=== PATIENT | male | born 1945 | race Caucasian/White ===

== ENCOUNTER → 2018-01-15 | Outpatient (CLI) | payer MEDICARE ==
[2018-01-15 08:31] LABS: HEMATOCRIT 42.8 % (42.0-52.0); HEMOGLOBIN 14.1 g/dl (14.0-18.0); MEAN CORPUSCULAR HGB 31.6 pg (27.0-31.0); MEAN CORPUSCULAR HGB CONC 32.9 g/dl (33.0-37.0); MEAN PLATELET VOLUME 9.6 fl (9.6-12.3); RED BLOOD COUNT 4.46 10*6/uL (4.50-5.90); WHITE BLOOD COUNT 7.2 10*3/uL (4.8-10.8)
[2018-01-15 08:43] LABS: ALBUMIN 3.8 gm/dl (3.1-4.5); ALKALINE PHOSPHATASE 87 U/L (45-117); BUN 13 mg/dl (7-24); CHLORIDE 102 mmol/L (98-107); CHOLESTEROL 212 mg/dL (<200); CREATININE 1.11 mg/dL (0.70-1.30); POTASSIUM 3.8 mmol/L (3.5-5.1); SGOT/AST 16 IU/L (3-35); SGPT/ALT 19 U/L (12-78); SODIUM 136 mmol/L (136-145); TOTAL PROTEIN 7.7 gm/dL (6.4-8.2); TRIGLYCERIDES 120 mg/dl (<150); VLDL CHOLESTEROL 24 mg/dL (6-40)
[2018-01-15 08:45] LABS: HDL CHOLESTEROL 41 mg/dl (40-60); LDL CHOLESTEROL 147 mg/dL (9-159)
== END ==
LOC: LAB 07:20
PROVIDERS: Family Medicine
DX: Z12.5 Encounter for screening for malignant neoplasm of prostate (principal); E55.9 Vitamin D deficiency, unspecified; E74.9 Disorder of carbohydrate metabolism, unspecified; E78.00 Pure hypercholesterolemia, unspecified; F41.1 Generalized anxiety disorder; E74.00 Glycogen storage disease, unspecified; Z79.899 Other long term (current) drug therapy

== ENCOUNTER → 2018-01-27 | Outpatient (CLI) | payer MEDICARE | END | disposition home or self-care (01) | LOC: RAD 08:32 | DX: K21.9 Gastro-esophageal reflux disease without esophagitis (principal); R13.19 Other dysphagia ==

== ENCOUNTER → 2018-02-22 | Outpatient (CLI) | payer MEDICARE | END | disposition home or self-care (01) | LOC: MRI 12:51 | DX: J32.8 Other chronic sinusitis (principal); H91.90 Unspecified hearing loss, unspecified ear; R41.3 Other amnesia; E11.9 Type 2 diabetes mellitus without complications ==

== ENCOUNTER → 2018-07-26 | Outpatient (CLI) | payer MEDICARE, OTHER ==
[2018-07-26 10:54] LABS: HEMATOCRIT 42.1 % (42.0-52.0); HEMOGLOBIN 13.6 g/dl (14.0-18.0); MEAN CELL VOLUME 96.1 fl (80.0-94.0); MEAN CORPUSCULAR HGB 31.1 pg (27.0-31.0); MEAN CORPUSCULAR HGB CONC 32.3 g/dl (33.0-37.0); MEAN PLATELET VOLUME 9.3 fl (9.6-12.3); RED BLOOD COUNT 4.38 10*6/uL (4.50-5.90); RED CELL DISTRI WIDTH 12.6 % (0-14.5); WHITE BLOOD COUNT 7.2 10*3/uL (4.8-10.8)
[2018-07-26 11:08] LABS: ALBUMIN 3.5 gm/dl (3.1-4.5); ALKALINE PHOSPHATASE 78 U/L (45-117); BUN 19 mg/dl (7-24); CHLORIDE 105 mmol/L (98-107); CHOLESTEROL 163 mg/dL (<200); CPK 49 U/L (39-308); CREATININE 1.04 mg/dL (0.70-1.30); HDL CHOLESTEROL 39 mg/dl (40-60); LDL CHOLESTEROL 104 mg/dL (9-159); POTASSIUM 4.4 mmol/L (3.5-5.1); SGOT/AST 13 IU/L (3-35); SGPT/ALT 26 U/L (12-78); SODIUM 137 mmol/L (136-145); TOTAL PROTEIN 7.3 gm/dL (6.4-8.2); TRIGLYCERIDES 100 mg/dl (<150); VLDL CHOLESTEROL 20 mg/dL (6-40)
[2018-07-27 08:09] LABS: HEPATITIS B SURFACE AG Negative (Negative); HEPATITIS C VIRUS ANTIBODY 0.2 s/co (0.0-0.9)
== END | disposition home or self-care (01) ==
LOC: LAB 09:49
PROVIDERS: Family Medicine
DX: Z12.5 Encounter for screening for malignant neoplasm of prostate (principal); E78.00 Pure hypercholesterolemia, unspecified; E55.9 Vitamin D deficiency, unspecified; E74.9 Disorder of carbohydrate metabolism, unspecified; F41.9 Anxiety disorder, unspecified; E74.00 Glycogen storage disease, unspecified; E66.9 Obesity, unspecified; R53.83 Other fatigue; R10.9 Unspecified abdominal pain

== ENCOUNTER 2022-01-13 16:48 | Emergency (ER) | payer MEDICARE, OTHER ==
[~2022-01-13] VITALS: Ht 177.8 cm; Wt 133.4 kg
[2022-01-13 17:19] LABS: BASO % 0.3 % (0.0-1.0); EOS # 0.1 10*3/uL (0.0-0.4); EOS % 1.3 % (1.0-4.0); HEMATOCRIT 39.3 % (42.0-52.0); LYMPH # 2.3 10*3/uL (1.3-4.4); MEAN CELL VOLUME 92.7 fl (80.0-94.0); MEAN CORPUSCULAR HGB 30.9 pg (27.0-31.0); MEAN CORPUSCULAR HGB CONC 33.3 g/dl (33.0-37.0); MEAN PLATELET VOLUME 8.9 fl (9.6-12.3); MONO # 0.5 10*3/uL (0.1-1.0); MONO % 7.4 % (3.0-9.0); NEUT % 57.9 % (47.0-73.0); PLATELET COUNT AUTOMATED 176 10*3/uL (130-400); RED BLOOD COUNT 4.24 10*6/uL (4.50-5.90); RED CELL DISTRI WIDTH 12.7 % (0-14.5); WHITE BLOOD COUNT 6.9 10*3/uL (4.8-10.8)
[2022-01-13 17:32] LABS: ACT PARTIAL THROMBO TIME 22.2 SECONDS (20.0-32.1)
[2022-01-13 17:34] LABS: ALKALINE PHOSPHATASE 88 U/L (45-117); BUN 20 mg/dl (7-24); CHLORIDE 102 mmol/L (98-107); CREATININE 1.21 mg/dL (0.70-1.30); POTASSIUM 4.1 mmol/L (3.5-5.1); SGOT/AST 15 IU/L (3-35); SGPT/ALT 21 U/L (12-78); SODIUM 137 mmol/L (136-145); TOTAL PROTEIN 7.3 gm/dL (6.4-8.2)
== END 2022-01-13 18:04 | disposition short-term general hospital (02) ==
LOC: ED 16:48
PROVIDERS: Internal Medicine
DX: I21.3 ST elevation (STEMI) myocardial infarction of unspecified site (principal)

== ENCOUNTER 2022-04-24 13:08 | Emergency (ER) | payer MEDICARE, OTHER ==
[~2022-04-24] VITALS: Ht 177.8 cm; Wt 127.0 kg
[2022-04-24] MEDS ORDERED: CEPHALEXIN500 M1 PO (16:35)
[2022-04-24] MEDS ORDERED: SEPTDS PO (16:38)
== END 2022-04-24 16:56 | disposition home or self-care (01) ==
LOC: ED 13:08
DX: S61.412A Laceration without foreign body of left hand, initial encounter (principal); W18.09XA Striking against other object with subsequent fall, initial encounter; Y93.01 Activity, walking, marching and hiking; Y92.89 Other specified places as the place of occurrence of the external cause; Y99.8 Other external cause status

== ENCOUNTER 2023-08-21 10:41 | Emergency (ER) | payer MEDICARE ==
[~2023-08-21] VITALS: Wt 123.8 kg
[~2023-08-21 10:41] MED LIST: CEPHALEXIN500 M1 PO; SEPTDS PO
[2023-08-21 12:27] LABS: BASO % 0.2 % (0.0-1.0); EOS # 0.1 10*3/uL (0.0-0.4); EOS % 0.9 % (1.0-4.0); HEMATOCRIT 44.6 % (42.0-52.0); LYMPH # 1.5 10*3/uL (1.3-4.4); LYMPH % 15.4 % (27.0-41.0); MEAN CELL VOLUME 96.1 fl (80.0-94.0); MEAN CORPUSCULAR HGB 31.3 pg (27.0-31.0); MEAN CORPUSCULAR HGB CONC 32.5 g/dl (33.0-37.0); MEAN PLATELET VOLUME 9.3 fl (9.6-12.3); MONO # 0.5 10*3/uL (0.1-1.0); MONO % 4.5 % (3.0-9.0); NEUT # 7.8 10*3/uL (2.3-7.9); NEUT % 78.6 % (47.0-73.0); PLATELET COUNT AUTOMATED 148 10*3/uL (130-400); RED BLOOD COUNT 4.64 10*6/uL (4.50-5.90); RED CELL DISTRI WIDTH 12.9 % (0-14.5); WHITE BLOOD COUNT 9.9 10*3/uL (4.8-10.8)
[2023-08-21 12:37] LABS: ACT PARTIAL THROMBO TIME 24.2 SECONDS (20.0-32.1)
[2023-08-21 12:50] LABS: ALKALINE PHOSPHATASE 105 U/L (46-116); BUN 14 mg/dl (9-23); CHLORIDE 104 mmol/L (98-107); LIPASE 27 U/L (12-53); SGPT/ALT 21 U/L (5-49)
[2023-08-21] MEDS ORDERED: MIRALAX POWDER17 G1 PO (19:40)
== END 2023-08-21 19:57 | disposition home or self-care (01) ==
LOC: ED 10:41
PROVIDERS: Emergency Medicine
DX: Z98.890 Other specified postprocedural states (principal); R10.2 Pelvic and perineal pain

== ENCOUNTER 2024-10-06 17:01 | Emergency (ER) | payer MEDICARE ==
[~2024-10-06] VITALS: Ht 177.8 cm; Wt 129.3 kg
[~2024-10-06 17:01] MED LIST changes: +MIRALAX POWDER17 G1 PO
[2024-10-06] MEDS ORDERED: FAMOTIDINE 50 ML IV ONE (17:05)
[2024-10-06] MEDS ORDERED: SODIUM CHLORIDE 0.9% 1,000 ML IV ONE (17:05)
[2024-10-06] MEDS ORDERED: METFORMIN XR500 MG PO (17:15)
[2024-10-06] MEDS ORDERED: CALCIUM 600 MG1 EAC6 PO (17:15)
[2024-10-06] MEDS ORDERED: SERTRALINE HYDR50 MG PO (17:15)
[2024-10-06] MEDS ORDERED: PANTOPRAZOLE SO40 MG PO (17:16)
[2024-10-06] MEDS ORDERED: ROSUVASTATIN CA40 MG PO (17:16)
[2024-10-06] MEDS ORDERED: METOPROLOL SUCC25 M2 PO (17:16)
[2024-10-06] MEDS ORDERED: ASPIRIN ADULT L81 M2 PO (17:16)
[2024-10-06] MEDS ORDERED: COZAAR25 M1 PO (17:32)
[2024-10-06] MEDS ORDERED: PREDNISONE20 M1 PO (17:32)
[2024-10-06] MEDS ORDERED: GEMTESA75 MG PO (17:33)
[2024-10-06] MEDS ORDERED: MYRBETRIQ50 M1 PO (17:34)
[2024-10-06 18:18] LABS: BASO % 0.2 % (0.0-1.0); EOS % 0.3 % (1.0-4.0); HEMATOCRIT 37.6 % (42.0-52.0); MEAN CELL VOLUME 95.4 fl (80.0-94.0); MEAN CORPUSCULAR HGB 31.5 pg (27.0-31.0); MONO # 0.6 10*3/uL (0.1-1.0); NEUT # 6.7 10*3/uL (2.3-7.9); NEUT % 74.9 % (47.0-73.0); PLATELET COUNT AUTOMATED 120 10*3/uL (130-400); RED BLOOD COUNT 3.94 10*6/uL (4.50-5.90); RED CELL DISTRI WIDTH 12.2 % (0-14.5); WHITE BLOOD COUNT 8.9 10*3/uL (4.8-10.8)
[2024-10-06 18:47] LABS: BUN 18 mg/dl (9-23); CHLORIDE 99 mmol/L (98-107); POTASSIUM 4.7 mmol/L (3.4-5.1)
== END 2024-10-06 19:22 | disposition home or self-care (01) ==
LOC: ED 17:01
PROVIDERS: Emergency Medicine
DX: R07.89 Other chest pain (principal); R42 Dizziness and giddiness; E11.9 Type 2 diabetes mellitus without complications; Z98.890 Other specified postprocedural states

== ENCOUNTER → 2025-01-09 | Outpatient (CLI) | payer MEDICARE ==
[~2025-01-09] MED LIST changes: +ASPIRIN ADULT L81 M2 PO; +CALCIUM 600 MG1 EAC6 PO; +COZAAR25 M1 PO; +GEMTESA75 MG PO; +METFORMIN XR500 MG PO; +METOPROLOL SUCC25 M2 PO; +MYRBETRIQ50 M1 PO; +PANTOPRAZOLE SO40 MG PO; +PREDNISONE20 M1 PO; +ROSUVASTATIN CA40 MG PO; +SERTRALINE HYDR50 MG PO
[2025-01-10 16:07] LABS: LUPUS DRVVT 43.4 sec (0.0-47.0)
[2025-01-10 17:07] LABS: LUPUS REFLEX INTERPRETATION Comment: (.)
== END | disposition home or self-care (01) ==
LOC: LAB 13:09
PROVIDERS: ATTEND Orthopaedic Surgery
DX: S73.102A Unspecified sprain of left hip, initial encounter (principal); M16.12 Unilateral primary osteoarthritis, left hip; M76.892 Other specified enthesopathies of left lower limb, excluding foot; M25.552 Pain in left hip; X58.XXXA Exposure to other specified factors, initial encounter; Y93.89 Activity, other specified; Y92.89 Other specified places as the place of occurrence of the external cause; Y99.8 Other external cause status

== ENCOUNTER → 2025-06-30 | Outpatient (CLI) | payer MEDICARE | END | disposition home or self-care (01) | LOC: CT 12:57 | PROVIDERS: ATTEND Orthopaedic Surgery | DX: M25.552 Pain in left hip (principal); M54.50 Low back pain, unspecified; Z96.642 Presence of left artificial hip joint ==